=== PATIENT | female | born 2005 | race Caucasian/White ===

== ENCOUNTER 2023-08-25 23:17 | Inpatient (IN) | payer MEDICAID, SELFPAY ==
[2023-08-25 23:21] VITALS: BP 138/91; PULSE 77; RESP 16; TEMP 37.2; O2SAT 100; BMI 26.5
[2023-08-25 23:47] LABS: Basophils % 0.3 %; Eosinophils # 0.2 10^3/uL (0.0-0.8); Hematocrit 41.6 % (36-47); Lymphocytes # 3.4 10^3/uL (1.5-6.5); Lymphocytes % 28.8 %; Mean Corpuscular HGB Conc 34.4 g/dL (30-55); Mean Corpuscular Hemoglobin 29.5 pg (27-33); Mean Corpuscular Volume 85.8 fl (85-98); Mean Platelet Volume 10.3 fL (7.4-10.4); Monocytes # 0.6 10^3/uL (0.2-0.9); Monocytes % 4.9 %; Neutrophils % 63.7 %; Nucleated Red Blood Cells % 0 %; Platelet Count 321 10^3/cmm (157-399); Red Blood Count 4.85 10^6/uL (3.85-5.65); Red Cell Distribution Width 11.8 % (12.1-15.1); White Blood Count 11.75 10^3/uL (4.5-13.0)
[2023-08-25 23:52] LABS: HCG, Serum Qual Negative (Negative)
--- NOTE | 2023-08-25 23:52 | W.ED.PSYCHS ---
HPI - Psych General: Chief Complaint: Psychiatric Symptoms Stated Complaint: SI,left arm lac Time Seen by Provider: 08/25/23 23:48 History of Present Illness: Presents to the ER with a history of suicidal ideation. Patient reports missing 2 doses of her bipolar medicine and being in a bad mood and just gets worse throughout the day. Patient is having thoughts of harming herself. Patient has attempted to cut her arm over the last 2 weeks and attempted again today. Patient is never been inpatient treatment. Patient does not see a counselor, therapist or psychiatrist at the current moment but she has in the past before. Review of Systems General: Reports: 10 or more systems reviewed and unremarkable except in HPI and below PFSH ED PFSH: Medical History Anxiety Family History Father TBI (traumatic brain injury) Social History Smoking and tobacco/nicotine status: never used tobacco/nicotine Second hand smoke exposure: No Alcohol intake: never Adopted: No Physical Exam Const: COMMON NORMALS: no acute distress, average body habitus, patient oriented x3, no limitations, healthy appearing, alert and well nourished HENMT: COMMON NORMALS: normocephalic, atraumatic, hearing grossly normal bilaterally, external ears normal, Normal external nose present, moist oral mucous membranes and oropharynx normal HEAD & SCALP: normocephalic and atraumatic NOSE: Normal external nose present EXTERNAL EAR: Yes external ears normal Neck/C-Spine: COMMON NORMALS: no JVD Chest: COMMONS NORMALS: normal inspection of the chest and normal palpation of entire chest wall Resp: COMMON NORMALS: normal respiratory effort, No retractions, No use of accessory muscles and clear to auscultation bilaterally AUSCULTATION: clear to auscultation bilaterally Cardio: COMMON NORMALS: no JVD, regular rate, regular rhythm, S1 normal heart sound present, S2 normal heart sound present, No gallops present (Cardio), No clicks present (Cardio), No murmurs present (Cardio) and No rub (Cardio) RATE: regular rate RHYTHM: regular rhythm HEART SOUNDS: S1 normal heart sound present and S2 normal heart sound present GI: COMMON NORMALS: Normal to inspection, nondistended, normoactive bowel sounds present, Soft to palpation, non-tender, No hepatosplenomegaly present and no masses PALPATION: Yes Soft to palpation and Yes No hepatosplenomegaly present Neuro: COMMON NORMALS: patient oriented x3 SENSORIUM/ORIENTATION: Yes alert Course Vital Signs: Vital signs: Vital Signs Temperature 98.9 F 08/25/23 23:21 Pulse Rate 77 08/25/23 23:21 Respiratory Rate 16 08/25/23 23:21 Blood Pressure 138/91 08/25/23 23:21 Pulse Oximetry 100 08/25/23 23:21 Oxygen Delivery Me thod Room Air 08/25/23 23:21 MDM - Psych Medical Decision Making Patient presents with for suicidal ideation. Patient be worked up in normal psychiatric fashion for medical clearance. Once medically cleared. Will call Dr. Barragan for probable inpatient admission. Consulted Dr. Barragan who agreed for inpatient admission to [facility] for further evaluation and treatment. Differential Diagnosis Likely suicidal ideation, bipolar disorder and depression; Unlikely acute psychosis, chronic schizophrenia, drug-induced psychotic disorder or acute anxiety Medical Records I reviewed the patient's medical records. Lab Data I reviewed the patient's lab results. 08/25/23 23:35 08/25/23 23:35 Laboratory Results WBC 11.75 10^3/uL (4.5-13.0) 08/25/23 23:35 RBC 4.85 10^6/uL (3.85-5.65) 08/25/23 23:35 Hgb 14.30 g/dL (12.4-14.8) 08/25/23 23:35 Hct 41.6 % (36-47) 08/25/23 23:35 MCV 85.8 fl (85-98) 08/25/23 23:35 MCH 29.5 pg (27-33) 08/25/23 23:35 MCHC 34.4 g/dL (30-55) 08/25/23 23:35 RDW 11.8 % (12.1-15.1) L 08/25/23 23:35 Plt Count 321 10^3/cmm (157-399) 08/25/23 23:35 MPV 10.3 fL (7.4-10.4) 08/25/23 23:35 Neut % (Auto) 63.7 % 08/25/23 23:35 Lymph % (Auto) 28.8 % 08/25/23 23:35 [place] % (Auto) 4.9 % 08/25/23 23:35 Eos % (Auto) 2.0 % 08/25/23 23:35 Baso % (Auto) 0.3 % 08/25/23 23:35 Neut # (Auto) 7.50 10^3/uL (1.8-8.0) 08/25/23 23:35 Lymph # (Auto) 3.4 10^3/uL (1.5-6.5) 08/25/23 23:35 [place] # (Auto) 0.6 10^3/uL (0.2-0.9) 08/25/23 23:35 Eos # (Auto) 0.2 10^3/uL (0.0-0.8) 08/25/23 23:35 Baso # (Auto) 0.0 10^3/uL (0.0-0.1) 08/25/23 23:35 Nucleated RBC % (auto) 0 % 08/25/23 23:35 Nucleated RBCs # 0.0 /100WBC 08/25/23 23:35 Sodium 140 mmol/L (136-145) 08/25/23 23:35 Potassium 3.6 mmol/L (3.5-5.1) 08/25/23 23:35 Chloride 105 mmol/L (98-107) 08/25/23 23:35 Carbon Dioxide 24 mmol/L (22-29) 08/25/23 23:35 Anion Gap 14.6 (5-19) 08/25/23 23:35 BUN 13 mg/dL (6-20) 08/25/23 23:35 Creatinine 0.9 mg/dL (0.5-0.9) 08/25/23 23:35 GFR Calculation 80.7 mL/min (90-130) L 08/25/23 23:35 Glucose 94 mg/dL (65-115) 08/25/23 23:35 Calculated Osmolality 290 mOsm/kg (285-295) 08/25/23 23:35 Calcium 9.4 mg/dL (8.5-10.5) 08/25/23 23:35 Total Bilirubin 0.5 mg/dL (0.15-1.2) 08/25/23 23:35 AST 14 U/L (0-32) 08/25/23 23:35 ALT 12 U/L (0-33) 08/25/23 23:35 Alkaline Phosphatase 89 U/L (35-105) 08/25/23 23:35 Total Protein 8.4 g/dL (6.6-8.7) 08/25/23 23:35 Albumin 4.9 g/dL (3.5-5.2) 08/25/23 23:35 Globulin 3.5 g/dL (1.3-4.6) 08/25/23 23:35 TSH 5.15 uIU/mL (0.27-4.20) H 08/25/23 23:35 HCG, Qual Negative (Negative) 08/25/23 23: Urine Color Yellow (Yellow) 08/25/23 23: Urine Appearance Clear (CLEAR) 08/25/23 23: Urine pH 5 (5-7) 08/25/23 23: Ur Specific [place] 1.025 (1.005-1.030) 08/25/23 23: Urine Protein Trace (Negative) 08/25/23 23: Urine Glucose (UA) Norm (Normal) 08/25/23 23: Urine Ketones 1+ (Negative) H 08/25/23 23: Urine Blood 3+ (Negative) H 08/25/23 23: Urine Nitrate Negative (Negative) 08/25/23 23: Urine Bilirubin Neg (Negative) 08/25/23 23: Urine Urobilinogen Norm mg/dL (Negative) 08/25/23 23: Ur Leukocyte Esterase Negative (Negative) 08/25/23 23:29 Urine RBC 0-4 /hpf (0-2) H 08/25/23 23:29 Urine WBC 0-4 /hpf (0-5) H 08/25/23 23: Ur Squamous Epith Cells 10-15 /hpf (0-5) H 08/25/23 23: Amorphous Sediment Not Reportable 08/25/23 23: Urine Bacteria 1+ /hpf (NONE) H 08/25/23 23: Urine Mucus 2+ /hpf 08/25/23 23:29 Salicylates < 0.3 mg/dL (3-10) L 08/25/23 23:35 Urine Opiates Screen Negative ng/mL (Negative) 08/25/23 23:29 Acetaminophen < 5.0 ug/mL (10-30) L 08/25/23 23:35 Ur Barbiturates Screen Negative ng/mL (Negative) 08/25/23 23:29 Ur Phencyclidine Scrn Negative ng/mL (Negative) 08/25/23 23:29 Ur Amphetamines Screen Negative ng/mL (Negative) 08/25/23 23:29 U Benzodiazepines Scrn Negative ng/mL (Negative) 08/25/23 23:29 Urine Cocaine Screen Negative ng/mL (Negative) 08/25/23 23:29 U Marijuana (THC) Screen Positive ng/mL (Negative) H 08/25/23 23:29 Ethyl Alcohol < 10 mg/dL (0-10) 08/25/23 23:35 All radiology interpretation(s) finalized by discharge Discharge Plan Discharge Patient Disposition: Admitted As Inpatient Clinical Impression: Suicidal ideation Depression Qualifiers: Depression Type: major depressive disorder Major depression recurrence: unspecified whether recurrent Active/Remission status: currently active Major depression episode severity: unspecified Qualified Code(s): F32.9 - Major depressive disorder, single episode, unspecified Condition: Stable Coding Level of Care Code ED [employer] for Marry Almanzar
[2023-08-25 23:57] LABS: Add Urine Microscopic? YES; Bilirubin Urine Neg (Negative); Blood Urine 3+ (Negative); Glucose Urine UA Norm (Normal); Ketones Urine 1+ (Negative); Leukocyte Esterase Urine Negative (Negative); Nitrate Urine Negative (Negative); Protein Urine Trace (Negative); Specific Gravity, Urine 1.025 (1.005-1.030); Urine Appearance Clear (CLEAR); Urine Color Yellow (Yellow); Urobilinogen Urine Norm (Negative); pH Urine 5 (5-7)
[2023-08-25 23:58] LABS: Add Urine Culture? No; Bacteria Urine 1+ /hpf; Mucus Urine 2+ /hpf; RBC Urine 0-4 /hpf (0-2); WBC Urine 0-4 /hpf (0-5)
[2023-08-26 00:02] LABS: Amphetamines Screen Urine Negative (Negative); Barbiturates Screen Urine Negative (Negative); Benzodiazepines Screen Urine Negative (Negative); Cocaine Screen Urine Negative (Negative); Opiate Screen Urine Negative (Negative); PCP Screen Urine Negative (Negative); THC Screen Urine Positive (Negative)
[2023-08-26 00:06] LABS: Alanine Aminotransferase 12 U/L (0-33); Albumin Level 4.9 g/dL (3.5-5.2); Alkaline Phosphatase 89 U/L (35-105); Anion Gap 14.6 (5-19); Aspartate Amino Transferase 14 U/L (0-32); Blood Urea Nitrogen 13 mg/dL (6-20); Calcium 9.4 mg/dL (8.5-10.5); Carbon Dioxide 24 mmol/L (22-29); Chloride 105 mmol/L (98-107); Globulin 3.5 g/dL (1.3-4.6); Glomerular Filtration Rate 80.7 mL/min (90-130); Glucose 94 mg/dL (65-115); Osmolality Calculated 290 mOsm/kg (285-295); Potassium 3.6 mmol/L (3.5-5.1); Sodium 140 mmol/L (136-145); Thyroid Stimulating Hormone 5.15 uIU/mL (0.27-4.20); Total Bilirubin 0.5 mg/dL (0.15-1.2); Total Protein 8.4 g/dL (6.6-8.7)
[2023-08-26 00:13] LABS: Acetaminophen < 5.0 ug/mL (10-30); Alcohol Level < 10 mg/dL (0-10); Salicylate < 0.3 mg/dL (3-10)
[2023-08-26 01:07] VITALS: BP 126/78; PULSE 53; RESP 18; TEMP 36.6; O2SAT 99
[2023-08-26 01:19] VITALS: PULSE 68; RESP 18
[2023-08-26 06:00] VITALS: BP 129/78; PULSE 81; RESP 17; TEMP 36.8; O2SAT 98
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
[2023-08-26] MEDS: meloxicam 7.5 mg tablet 15 MG PO (09:34)
[2023-08-26] MEDS: buPROPion SR (12 HR) 100 mg Tablet PO (09:35)
[2023-08-26] MEDS: nicotine 2 mg Gum BUCCAL ×3 (11:00→20:30)
[2023-08-26 14:00] VITALS: BP 107/70; PULSE 58; RESP 14; TEMP 37.6; O2SAT 98
[2023-08-26 20:11] VITALS: BP 108/74; PULSE 55; RESP 16; TEMP 36.8; O2SAT 97
[2023-08-26] MEDS: prazosin 1 mg Capsule PO (20:19)
[2023-08-26] MEDS: quetiapine XR (24HR) 50 mg Tablet PO (20:19)
[2023-08-26] MEDS: hyDROXYzine 25 mg Capsule 50 MG PO (20:19)
[2023-08-27 06:00] VITALS: BP 108/64; PULSE 81; RESP 16; O2SAT 99
--- NOTE | 2023-08-27 07:17 | P.NPUPN_ITS ---
Subjective NPU 2 Subjective: Patient presented today reporting that she is not liking being here. She has significant meltdown and was very tearful and crying throughout her mother's visit. She was on the verge of trying to sign out AMA and mother requested to speak with this video games storywriter which occurred and then the 2 of us met with the patient. She was very labile and mostly did not make sense and was appearing quite immature as she acknowledged the reality of her situation but somehow wanted to magically not need to be here and leave and do this in the comfort of my own home. We discussed the different risks versus benefits of her presents inpatient. And reviewed the many benefits that she is currently incurring that would have taken months likely in an outpatient setting as she is currently not engaged in mental health treatment. Eventually she was able to be reasonable about the situation and the likely short stay and the many benefits. Mom acknowledges her having some clearly cluster B tendencies. Mental Status Exam 2 MSE Comments: This is a well-nourished, well-developed white female, in hospital scrubs, with adequate grooming and eye contact. No abnormal movements except for psychomotor agitation. Cooperative with exam in moderate distress. Speech was slightly decreased rate and volume. Mood described as lonely and bored; affect congruent, tearful and labile. Thought process, organized. Thought content: patient denied any suicidal or homicidal ideation, there were no delusions reported or noted, patient denied any auditory or visual hallucinations. Attention, concentration, and memory appeared intact, but none were formally tested. Alert and oriented times three. Insight and judgment appear limited. Impulse control is impaired. Vitals/I&O/Wt Last Vital Signs Temp 98.2 F 08/26/23 20:11 Pulse 81 08/27/23 06:00 Resp 16 08/27/23 06:00 BP 108/64 08/27/23 06:00 Pulse Ox 99 08/27/23 06:00 O2 Del Method Room Air 08/27/23 06:00 Weight last 48 hrs Weight 68.039 kg Data NPU 08/25/23 23:35 08/25/23 23:35 A&P Assessment and plan (1) Anxiety: (2) Suicidal ideation: (3) Major depressive disorder, recurrent: (4) PTSD (post-traumatic stress disorder): Plan This is a 17-year-old white female with a long history of trauma, depression and possible personality disorder from cluster B who presents on medication that she reports is an effective open to medication changes. 1.? Continue current medications. Discontinued Wellbutrin SR 100 mg, started Wellbutrin XL 150 mg. Increase Zoloft 75 mg to 100 mg. And consider increasing Seroquel XR 50 mg the Seroquel XR at 100 mg. 2.? Encourage individual, group, and milieu therapy. 3.? Continue q-15-minute checks for safety. Involuntary Hold Information 2 96 Hour Hold: 96 Hour Involuntary Admission: No Attestations NPU 2 Medical Necessity Statement*: Inpatient hospitalization is medically necessary and the clinically appropriate intervention at this time. We will monitor/initiate medications and make changes as indicated. Likely length of stay 2-4 days. Coding Level of Care Code Acute Code for [facility] Fwd Diagnoses Anxiety F41.9 Suicidal ideation R45.851 Major depressive disorder, recurrent F33.9 PTSD (post-traumatic stress disorder) F43.10
[2023-08-27] MEDS: buPROPion XL (24 HR) 150 mg Tablet PO (08:45)
[2023-08-27] MEDS: meloxicam 7.5 mg tablet 15 MG PO (08:45)
[2023-08-27 14:00] VITALS: BP 107/77; PULSE 61; RESP 16; TEMP 36.6; O2SAT 100
[2023-08-27] MEDS: nicotine 2 mg Gum BUCCAL ×2 (18:26→22:18)
[2023-08-27 19:45] VITALS: BP 101/72; PULSE 77; RESP 15; TEMP 36.8; O2SAT 97
[2023-08-27] MEDS: quetiapine XR (24HR) 50 mg Tablet PO (21:39)
[2023-08-27] MEDS: trazodone 50 mg Tablet PO (21:39)
[2023-08-27] MEDS: sertraline 100 mg Tablet PO (21:39)
[2023-08-27] MEDS: hyDROXYzine 25 mg Capsule 50 MG PO (21:40)
[2023-08-27] MEDS: prazosin 1 mg Capsule PO (22:21)
[2023-08-28 06:00] VITALS: BP 122/80; PULSE 103; RESP 16; TEMP 36.4; O2SAT 97; BMI 25.8
--- NOTE | 2023-08-28 08:35 | P.NPUPN_ITS ---
Subjective NPU 2 Subjective: Patient presented today reporting that she is doing a lot better than yesterday. We had a lengthy discussion about her emotional dysregulation and when it seems to reared its head. She reports that can happen in lots of different situations including with relationships. She does report however it is not a weekly occurrence but it is also not rare. She reports that she is feeling okay today and that the medication changes may be helping. We discussed the risks, benefits and alternatives of increasing the Seroquel XR to 100 mg p.o. nightly this evening and she understood and agreed to proceed as is documented in this note. She denied any side effects of the medications and reports she was sleeping decent and eating better today. Mental Status Exam 2 MSE Comments: This is a well-nourished, well-developed white female, in hospital scrubs, with adequate grooming and eye contact. No abnormal movements. Cooperative with exam in mild distress. Speech was slightly decreased rate and volume. Mood described as a little better; affect congruent. Thought process, organized. Thought content: patient denied any suicidal or homicidal ideation, there were no delusions reported or noted, patient denied any auditory or visual hallucinations. Attention, concentration, and memory appeared intact, but none were formally tested. Alert and oriented times three. Insight and judgment appear limited, but improving. Impulse control is impaired, but improving. Vitals/I&O/Wt Last Vital Signs Temp 97.5 F L 08/28/23 06:00 Pulse 103 H 08/28/23 06:00 Resp 16 08/28/23 06:00 BP 122/80 08/28/23 06:00 Pulse Ox 97 08/28/23 06:00 O2 Del Method Room Air 08/28/23 06:00 Weight last 48 hrs Weight 66.224 kg Data NPU 08/25/23 23:35 08/25/23 23:35 A&P Assessment and plan (1) Anxiety: (2) Suicidal ideation: (3) Major depressive disorder, recurrent: (4) PTSD (post-traumatic stress disorder): Plan This is a 17-year-old white female with a long history of trauma, depression and possible personality disorder from cluster B who presents on medication that she reports is an effective open to medication changes. 1.? Continue current medications. Discontinued Wellbutrin SR 100 mg, started Wellbutrin XL 150 mg. Increased Zoloft 75 mg to 100 mg. Increase Seroquel XR 50 mg the Seroquel XR at 100 mg this evening. 2.? Encourage individual, group, and milieu therapy. 3.? Continue q-15-minute checks for safety. Involuntary Hold Information 2 96 Hour Hold: 96 Hour Involuntary Admission: No Attestations NPU 2 Medical Necessity Statement*: Inpatient hospitalization is medically necessary and the clinically appropriate intervention at this time. We will monitor/initiate medications and make changes as indicated. Likely length of stay 1-3 days. Coding Level of Care Code Acute Code for [facility] Fwd Diagnoses Anxiety F41.9 Suicidal ideation R45.851 Major depressive disorder, recurrent F33.9 PTSD (post-traumatic stress disorder) F43.10
[2023-08-28] MEDS: meloxicam 7.5 mg tablet 15 MG PO (08:47)
[2023-08-28] MEDS: buPROPion XL (24 HR) 150 mg Tablet PO (08:47)
[2023-08-28] MEDS: sertraline 100 mg Tablet PO (08:48)
[2023-08-28 14:00] VITALS: BP 105/66; PULSE 68; RESP 16; TEMP 36.5; O2SAT 100
[2023-08-28] MEDS: prazosin 1 mg Capsule PO (19:50)
[2023-08-28] MEDS: quetiapine XR (24HR) 50 mg Tablet PO (19:50)
[2023-08-28] MEDS: nicotine 2 mg Gum BUCCAL (19:50)
[2023-08-28 20:14] VITALS: BP 104/73; PULSE 73; RESP 18; TEMP 37.2; O2SAT 98
[2023-08-29 06:00] VITALS: BP 106/76; PULSE 91; RESP 16; O2SAT 98
[2023-08-29 07:41] VITALS: BP 106/76; PULSE 91; RESP 16; O2SAT 98
[2023-08-29] MEDS: buPROPion XL (24 HR) 150 mg Tablet PO (08:24)
[2023-08-29] MEDS: sertraline 100 mg Tablet PO (08:24)
[2023-08-29] MEDS: meloxicam 7.5 mg tablet 15 MG PO (08:24)
[2023-08-29] MEDS: nicotine 2 mg Gum BUCCAL ×2 (08:26→12:11)
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
--- NOTE | 2023-08-29 16:01 | PC.NURSE ---
CHANGE TO DISCHARGE MEDICATION: SEROQUEL 150 MG ER DAILY AT BEDTIME, QTY 30, REFILL X1
== END 2023-08-29 13:41 | disposition home or self-care (01) | DRG 885 ==
LOC: ER 23:54 → NP 08-26 00:59
PROVIDERS: Nurse Practitioner Family; Admitting Provider Psychiatry & Neurology Psychiatry; Emergency Provider Emergency Medicine; PCP Nurse Practitioner Family; Visit Provider Psychiatry & Neurology Psychiatry
DX: F33.9 Major depressive disorder, recurrent, unspecified (principal); R45.851 Suicidal ideations; F41.9 Anxiety disorder, unspecified; F43.10 Post-traumatic stress disorder, unspecified; F17.290 Nicotine dependence, other tobacco product, uncomplicated; F12.90 Cannabis use, unspecified, uncomplicated
CPT/HCPCS: 80053; 80306; 80307; 81001; 84443; 84703; 85025; 97150; 97165; 99285; J3535

== ENCOUNTER → 2024-01-12 11:01 | Outpatient (BNVA) | payer MEDICAID, SELFPAY | PROVIDERS: PCP Nurse Practitioner Family; Visit Provider Obstetrics & Gynecology | DX: N94.6 Dysmenorrhea, unspecified (principal); N88.8 Other specified noninflammatory disorders of cervix uteri | CPT/HCPCS: 76830 ==

== ENCOUNTER → 2024-07-11 16:11 | Outpatient (BNVA) | payer MEDICAID, SELFPAY | PROVIDERS: PCP Nurse Practitioner Family; Visit Provider Nurse Practitioner Psychiatric/Mental Health | DX: Z79.899 Other long term (current) drug therapy (principal) | CPT/HCPCS: 80061; 83036 ==